=== PATIENT | female | born 1965 | race Caucasian/White ===

== ENCOUNTER 2019-03-25 07:32 | Outpatient (CLI) | payer OTHER ==
[~2019-03-25 07:32] MED LIST: REGADENOSON 0.4 MG/5 ML SYRINGE ONE
== END 2019-03-25 23:59 | disposition home or self-care (01) ==
LOC: CFH 07:32
PROVIDERS: ATTEND Family Medicine
DX: I44.7 Left bundle-branch block, unspecified (principal)
CPT/HCPCS: 78452; 93017; A9502; J2785